=== PATIENT | female | born 1955 | race American Indian/Alaskan Native ===

== ENCOUNTER 2017-06-01 09:54 | Day surgery (SDC) | payer OTHER ==
[2017-06-01] MEDS ORDERED: NACL 0.9% 1000 ML 1,000 ML IV SCH (11:00)
[2017-06-01] MEDS ORDERED: DIPRIVAN 10 MG/ML IV ONE ×2 (13:56)
--- NOTE | 2017-06-01 14:01 | Anesthesia Consultation ---
Anesthesia Consult and Med Hx Date of service: 06/01/17 - Airway Anesthetic Teeth Evaluation: Dentures ROM Head & Neck: Adequate Mental/Hyoid Distance: Adequate Mallampati Class: Class II Intubation Access Assessment: Probably Good - Pulmonary Exam CTA: Yes - Cardiac Exam Cardiac Exam: RRR - Pre-Operative Health Status ASA Pre-Surgery Classification: ASA2 Proposed Anesthetic Plan: MAC - Pulmonary Hx Smoking: No Hx Asthma: No - Cardiovascular System Hx Hypertension: No - Endocrine Hx Renal Disease: No Hx Non-Insulin Dependent Diabetes: No - Additional Comments Anesthesia Medical History Comments: hepatitis c
--- NOTE | 2017-06-01 14:01 | Anesthesia Day of Surgery ---
Anesthesia Day of Surgery - Day of Surgery Patient Examined: Yes Patient H&P Reviewed: Yes Patient is NPO: Yes
[2017-06-01] MEDS ORDERED: XYLOCAINE MPF 2% ONE (14:30)
--- NOTE | 2017-06-01 14:34 | Operative Report ---
Operative Report Operative Report: Date of procedure: 06/01/2017 Procedure: Esophagogastroduodenoscopy with multiple mucosal biopsies. Attending physician: Amarjit Fraser MD Pick And Shovel Man: Amarjit Fraser MD Indication: Patient is a 62-year-old female who presented with a history of recurrent epigastric pain with bloating indigestion and heartburn. An upper endoscopy is done to evaluate patient further in hopes that patient's treatment may be directed based on the endoscopic findings. Consent: Informed consent was obtained after advising the patient and family regarding nature of this procedure, its indications, potential benefits as well as possible complications including but not limited to bleeding perforation and adverse reaction to medication, infection as well as other cardiopulmonary complications. An informed written and verbal consent was then obtained after due opportunity was provided for questions and answers. Monitoring: Patient was monitored continuously with pulse oximetry and electrocardiographic recordings as well as blood pressure recordings. Vital signs remained stable throughout this procedure with no untoward events. Preoperative assessment: Patient was assessed immediately prior to this procedure for capacity to tolerate monitored anesthesia care and moderate sedation as well as general anesthesia. Patient's ASA classification is 2, Mallampati class is 2, Hyomental distance is 3. Instrument: [employer] Video Endoscope Medications: Propofol given intravenously in divided doses Description of procedure: Patient was placed in the left lateral decubitus position after achieving sedation, the endoscope was introduced into the esophagus under direct vision. It was then advanced beyond the esophagus into the stomach and then beyond the stomach into the duodenum and to the second portion of the duodenum. It was subsequently withdrawn with careful inspection of all mucosal surfaces with the following findings. Findings: Esophagus was relatively normal. The Z line was irregular at 38 cm the diaphragmatic pinchcock was at 40 cm. There were multiple erosions and erythema in the gastric antrum. Biopsies were obtained from the antrum for histopathology. The duodenum was normal to second portion. Impression: Irregular Z line Small sliding hiatal hernia Gastric antral erythema with erosions. Plan: Follow pathology report Continue treatment with proton pump inhibitors Direct additional treatment based on the pathology.
--- NOTE | 2017-06-01 14:35 | Discharge Summary ---
Short Stay Discharge Plan Activity: advance as tolerated Weight Bearing Status: Weight Bear as Tolerated Diet: regular Additional Instructions: Post Sedation D/C Instructions When you return home you may resume your regular diet unless otherwise directed. -Go directly home from the hospital and rest quietly. You may resume normal activities tomorrow. -Do NOT drive, return to work, operate any machinery or make any important personal or business decisions today. -Do NOT drink any alcohol or take nerve or sleeping drugs. They add to the effects of the medicine still present in your body. Follow up with Dr. Fraser to obtain pathology results and treatment plan.
[2017-06-01 15:07] VITALS: BP 161/94
== END 2017-06-01 09:55 | disposition home or self-care (01) ==
LOC: GIO 09:54
PROVIDERS: ATTEND Internal Medicine Gastroenterology
DX: K25.9 Gastric ulcer, unspecified as acute or chronic, without hemorrhage or perforation (principal); K21.9 Gastro-esophageal reflux disease without esophagitis; K44.9 Diaphragmatic hernia without obstruction or gangrene; J45.909 Unspecified asthma, uncomplicated
CPT/HCPCS: 43239; 88305; 88342; J2704; J7030